=== PATIENT | female | born 1995 | race Asian ===

== ENCOUNTER 2019-07-10 13:13 | Emergency (ER) | payer MEDICAID ==
[~2019-07-10] VITALS: Ht 177.8 cm; Wt 52.2 kg
--- NOTE | 2019-07-10 13:25 | NUR ---
"SUICIDAL IDEATION WITH PLAN TO CUT WRIST" PT AAOX4, -SOB, NAD NOTED, SI PRECAUTIONS INITIATED, ALL BELOGINGS IN LCOKERS FOR SAFETY, PENDING ER PROVIDER VISHALAL
--- NOTE | 2019-07-10 13:28 | NUR ---
PT PROVIDED URINE SAMPLE. SENT TO LAB
[2019-07-10 13:55] LABS: BASOPHILS % (AUTO) 0.3 % (0.0-2.0); CALCIUM, SERUM 9.2 mg/dL (8.5-10.1); CARBON DIOXIDE 28 mmol/L (21-32); CHLORIDE 105 mmol/L (98-107); CREATININE 0.8 mg/dL (0.6-1.3); EOSINOPHILS % (AUTO) 0.2 % (0.0-6.0); GLUCOSE 100 mg/dL (74-106); HEMATOCRIT 39 % (33-45); HEMOGLOBIN 14.1 g/dL (11.5-14.8); LYMPHOCYTES # (AUTO) 1.1 /CMM (0.8-4.8); LYMPHOCYTES % (AUTO) 17.4 % (20.0-44.0); MEAN CORPUSCULAR HGB CONC 37 g/dl (31.0-36.0); MEAN CORPUSCULAR VOLUME 91 fL (82-100); MONOCYTES # (AUTO) 0.2 /CMM (0.1-1.30); MONOCYTES % (AUTO) 2.6 % (2.0-12.0); NEUTROPHILS % (AUTO) 79.5 % (43.0-81.0); PLATELET COUNT (AUTO) 164 /CMM (150-450); RED BLOOD CELL COUNT(AUTO) 4.23 MIL/uL (4.0-5.2); SODIUM SERUM 141 mmol/L (136-145); UREA NITROGEN, BLOOD 13 mg/dL (7-18); WHITE BLOOD COUNT (AUTO) 6.3 K/uL (4.3-11.0)
[2019-07-10 13:56] LABS: APPEARANCE,URINE Clear (CLEAR); BILIRUBIN,URINE Negative (NEGATIVE); BLOOD, URINE Negative Ery/uL (NEGATIVE); COLOR,URINE Yellow (YELLOW); KETONES,URINE Negative (NEGATIVE); LEUKOCYTE ESTERASE ,URINE Negative (NEGATIVE); NITRITE, URINE Negative (NEGATIVE); PH,URINE 6.5 (5.0-8.0); PROTEIN,URINE Negative (NEGATIVE); UGLUCOSE Negative (NEGATIVE); UROBILINOGEN,URINE 0.2 EU/dL (0.2)
[2019-07-10 14:01] LABS: ALANINE AMINOTRANSFERASE 13 U/L (12-78); ALBUMIN 4.6 g/dL (3.4-5.0); ALCOHOL, BLOOD 4 mg/dL (0-0); ALKALINE PHOSPHATASE 50 U/L (46-116); ASPARTATE AMINOTRANSFERASE 14 U/L (15-37); BILIRUBIN,DIRECT 0.2 mg/dL (0.0-0.2); BILIRUBIN,TOTAL 2.4 mg/dL (0.2-1.0); TOTAL PROTEIN, SERUM 7.1 g/dL (6.4-8.2)
[2019-07-10 14:02] LABS: ACETAMINOPHEN 0 ug/ml (10-30); SALICYLATE < 2.8 mg/dL (2.8-20.0)
--- NOTE | 2019-07-10 14:15 | NUR ---
CALLED [facility] FOR PSYCH EVAL.
--- NOTE | 2019-07-10 15:07 | NUR ---
Social service consult requested by BERTA Bhardwaj for suicidal ideations with a plan. Pt. is a 23 year old female with a history of depression who presented to ED with suicidal ideations. TIMOTHY met with pt. bedside. Pt's boyfriend Robinson Austin was with the pt. bedside. TIMOTHY requested for him to step out of the room for privacy. Pt. is alert and oriented x 4. Pt. appears depressed and teary eyed. Pt. states she moved from [place] to [place] on May. Pt. states she moved out her to be with her boyfriend and "for a change." Pt's family is in [place]. Pt. lives with her boyfriend and two other roommates. Pt. has a psychiatric diagnosis of Depression, Anxiety and PTSD. Pt. was taking antidepressants but stopped because she didn't like how they made her feel. Pt. is suicidal with a plan drive her car [place] the bridge. Pt. has had suicidal ideations in the past and has superficially cut her wrist but didn't go to a hospital. Pt. denies any psychiatric hospitalizations in the past. Pt. is willing to go voluntary to a psychiatric hospital. TIMOTHY [facility] .
--- NOTE | 2019-07-10 15:58 | NUR ---
TIMOTHY called [facility] intake for a follow up . Diana requested for TIMOTHY to call back in 10 minutes since they are reviewing the clinical packet.
--- NOTE | 2019-07-10 16:18 | NUR ---
TIMOTYH spoke with Diana in intake at [facility] who informed TIMOTHY that pt. has been accepted at [facility] under Dr. Birch and have nurse call report to [phone] unit 2. Diana requested for the discharge summary to say " medically cleared" and faxed to them prior to calling in a report. TIMOTHY updated Terrence in ED with aforementioned information.
--- NOTE | 2019-07-10 16:19 | NUR ---
CALLED [facility] FOR TRANSPORT TO [facility], ETA 35 MIN, TRIP #[id number]
[2019-07-10 17:01] VITALS: BP 132/80
--- NOTE | 2019-07-10 17:13 | NUR ---
Report given to bruce for transport to [facility]
--- NOTE | 2019-07-10 17:31 | NUR ---
Report given to Shruti for continuity of care at [facility]
== END 2019-07-10 17:36 ==
LOC: ER 13:20
DX: R45.851 Suicidal ideations (principal)
CPT/HCPCS: 36415; 80048; 80076; 80305; 80307; 80329; 81001; 84703; 85025; 99285; G0480; 81000-TC